=== PATIENT | male | born 1955 | race African-American/Black ===

== ENCOUNTER 2017-04-03 14:01 | Emergency (ER) | payer MEDICAID ==
[~2017-04-03] VITALS: Ht 175.3 cm; Wt 66.0 kg
[~2017-04-03 14:01] MED LIST: IBUP100T38; [UNRECOGNIZED DRUG - OTHER]; [UNRECOGNIZED DRUG - REMARK]
[2017-04-03 14:43] VITALS: BP 110/63
== END 2017-04-03 18:33 | disposition home or self-care (01) ==
LOC: ER 14:01
DX: M54.5 Low back pain (principal); Z79.899 Other long term (current) drug therapy; J45.909 Unspecified asthma, uncomplicated; F17.200 Nicotine dependence, unspecified, uncomplicated; M25.522 Pain in left elbow
CPT/HCPCS: 99281

== ENCOUNTER 2018-09-14 14:36 | Emergency (ER) | payer MEDICAID ==
[~2018-09-14] VITALS: Ht 175.3 cm; Wt 61.0 kg
[2018-09-14 18:30] VITALS: BP 114/80
== END 2018-09-14 18:31 | disposition home or self-care (01) ==
LOC: ER 14:36
DX: J06.9 Acute upper respiratory infection, unspecified (principal); Z71.6 Tobacco abuse counseling; F17.210 Nicotine dependence, cigarettes, uncomplicated
CPT/HCPCS: 99282; 99406